=== PATIENT | male | born 1960 | race Caucasian/White ===

== ENCOUNTER → 2016-12-13 | Outpatient (CLI) | payer MEDICAID ==
--- NOTE | 2016-12-13 15:47 | XR ---
Abdomen HISTORY: Kidney stones Frontal view of the abdomen on 2 images There is retained fecal debris throughout the distribution of the colon. There calcification superimp osed over the left kidney possibly 4-5 calcifications measuring approximately 4 mm to 5 mm, there may be a proximal left ureteral calcification measuring 4 to 5 mm. There is no pneumoperitoneum or bowel obstruction. Lung bases are clear. There are prostate calcifications. IMPRESSION: Suspect left-sided nephrolithiasis, proximal left ureteral calculus may be present. Corre late for fecal stasis.
== END | disposition home or self-care (01) ==
LOC: RADXRMAIN 14:46
PROVIDERS: ATTEND Urology
DX: N20.1 Calculus of ureter (principal)
CPT/HCPCS: 74000